=== PATIENT | female | born 1945 | race Caucasian/White ===

== ENCOUNTER 2018-01-16 06:55 | Day surgery (SDC) | payer MEDICARE, OTHER ==
[~2018-01-16 06:55] MED LIST: Buffered Lidocaine 0.9% SYRIN* 5 ML/SYR SYRINGE INTRADERM ONE
[2018-01-16] MEDS ORDERED: Midazolam* 1 MG/ML 2 ML VIAL (2 MG) ONE (08:29)
[2018-01-16] MEDS ORDERED: fentaNYL* 50 MCG/ML 2 ML VIAL (100 MCG VIAL) ONE (08:29)
[2018-01-16] MEDS ORDERED: ROPIVACAINE 5 MG/ML 30 ML BTL (0.5%) ONE (08:57)
[2018-01-16] MEDS ORDERED: Clindamycin 900 MG/D5W BAG(*) 900 MG/50 ML BAG IVPB ONE (09:42)
[2018-01-16] MEDS ORDERED: Naloxone* 0.4 MG/ML 1 ML VIAL IV PRN (10:06)
[2018-01-16 10:16] VITALS: BP 110/63
--- NOTE | 2018-01-17 02:21 | OP ---
DATE OF OPERATION: 01/16/18 - [facility] DATE OF : 45 SURGEON: Laz Esparza MD [employer] [facility] ATTENDANT: PHILLIP Gonzalez ANESTHESIOLOGIST: Dr. Verde. ANESTHESIA: Local MAC. PRE-OP DIAGNOSIS: Left index finger, middle finger, and ring trigger fingers. POST-OP DIAGNOSES: 1. Left index finger, middle, and ring trigger fingers. 2. Significant flexor tenosynovitis, left index and middle fingers. OPERATIVE PROCEDURE: 1. Flexor tenosynovectomy, left index finger, in the palm. 2. Flexor tenosynovectomy, left middle finger, in the palm. 2. Left index trigger finger release of the A1 charli. 3. Left middle trigger finger release of the A1 charli. 4. Left ring trigger finger release of the A1 charli. INDICATIONS: Milagro has mona left ring trigger finger, additionally the index and middle fingers and generally the hand has lost ability to fully flex. She has not been able to get the fingers down to the palm. She says that those fingers used to trigger in the past but now she is simply cannot get them down to the palm. I had talked to her about her treatment options. She has had carpal tunnel release. This did not help with the stiffness. Her passive motion exceeds her active motion. I told her that I think there are problems with the tendons and that we need to do the releases. She understood the risks and benefits including risk of persistent stiffness and wanted to proceed. ESTIMATED BLOOD LOSS: 2 mL. COMPLICATIONS: None. FINDINGS: See above and below. DESCRIPTION OF PROCEDURE: Milagro was seen in the preoperative holding area. The correct side, site, and procedure were identified. We came back to the operating room where the arm was prepped and draped in the usual fashion. A time-out was performed. The arm was exsanguinated with the Esmarch and the tourniquet inflated to 250 mmHg. I went ahead and made a transverse incision in the distal palmar flexion crease. The digital neurovascular bundles were preserved. The soft tissue was released over the index, middle, and ring fingers. I first placed Ragnell retractors to expose the index finger, A1 charli was immediately apparent, there was abundant tenosynovitis protruding from underneath the A1 charli. I went ahead and released the A1 charli to do the trigger finger release. I then took some time to perform a full tenosynovectomy of the left index finger , FDS, and FDP tendons and clean up all of that proliferating and protruding flexor tenosynovitis. This was sent as a specimen. I then came to the middle finger and placed retractors in similar fashion. I released the A1 charli to complete the trigger finger release. The A1 charli was released at about the radial third of the charli. There was abundant tenosynovitis protruding from underneath the tendon sheath in this finger too and so I went ahead and performed a full tenosynovectomy until the tendons were completely clean for the middle finger as well. Lastly, I came to the ring finger. I exposed the A1 charli. A1 charli was released in standard fashion. There was not nearly as much as flexor tenosynovitis here and no real significant synovectomy was necessary. At this point, every-thing was looking good, so we irrigated out the wounds. Skin was closed with 4-0 nylon sutures. Soft dressings were applied. Tourniquet was deflated. The hand pinked up immediately. She was taken to the recovery room in stable condition. [id number]/[facility] #: [id number] DAVE
== END 2018-01-16 10:27 | disposition home or self-care (01) ==
LOC: OREAST 06:55
PROVIDERS: ATTEND Orthopaedic Surgery Hand Surgery
DX: M65.322 Trigger finger, left index finger (principal); M65.332 Trigger finger, left middle finger; M65.342 Trigger finger, left ring finger; M65.842 Other synovitis and tenosynovitis, left hand; I25.10 Atherosclerotic heart disease of native coronary artery without angina pectoris; Z95.5 Presence of coronary angioplasty implant and graft; E78.5 Hyperlipidemia, unspecified; I10 Essential (primary) hypertension; Z79.01 Long term (current) use of anticoagulants
CPT/HCPCS: 88304; J2250; J2795; J3010